=== PATIENT | male | born 1930 | race Caucasian/White ===

== ENCOUNTER → 2017-10-14 | Outpatient (CLI) | payer OTHER ==
[~2017-10-14] MED LIST: AMLODIPINE5 MG PO; DARVOCET N 1001 TAB PO; FLUTICASON0.05 MG/A2 NAS; HYDROCODONE BIT1 T11 PO; LISINOPRIL AND1 TA2 PO; POTASSIUM20 MEQ PO; TAMSULOSIN HYD0.4 MG PO
== END | disposition home or self-care (01) ==
LOC: MRI 09:56
DX: I67.82 Cerebral ischemia (principal); R41.3 Other amnesia

== ENCOUNTER 2018-12-20 13:09 | Emergency (ER) | payer MEDICARE ==
[~2018-12-20] VITALS: Wt 68.0 kg
--- NOTE | ~2018-12-20 | EKG ---
[place], [place] ELECTROCARDIOGRAM REPORT NAME: NEREYDA STEPHENSON UNIT #: [id number] ROOM: DOCTOR: EPIPHANY DRAFT REPORT BIRTHDATE: [birth year] [facility] Test Date: 2018-12-20 Test Time: 14:06:10 Pat Name: NEREYDA STEPHENSON Department: Room: Gender: M Checkout Operator: : 1930 Requested By: MARY ANN BATISTA DNP Order Number: [id number] Reading MD: Joanne Godoy Measurements Intervals [place] Rate: 67 P: 13 LA: 175 QRS: -30 QRSD: 108 T: 30 QT: 403 QTc: 426 Interpretive Statements Sinus rhythm Multiple ventricular premature complexes Left axis deviation Abnormal R-wave progression, early transition Baseline wander in lead(s) V3 No previous ECG available for comparison Electronically Signed On 12-21-2018 8:38:22 PDT by Joanne Godoy CM:EKGRPT:ELECTROCARDIOGRAM REPORT [id number] MARY ANN LONG DRAFT REPORT MARY ANN BATISTA DNP
[2018-12-20] MEDS ORDERED: ZYRTEC10 M3 PO (13:30)
[2018-12-20 14:23] LABS: BASO # 0.1 10*3/uL (0.0-0.1); BASO % 0.7 % (0.0-1.0); EOS % 0.6 % (1.0-4.0); HEMATOCRIT 40.5 % (42.0-52.0); HEMOGLOBIN 13.1 g/dl (14.0-18.0); LYMPH % 14.3 % (27.0-41.0); MEAN CELL VOLUME 92.9 fl (80.0-94.0); MEAN CORPUSCULAR HGB CONC 32.3 g/dl (33.0-37.0); MEAN PLATELET VOLUME 9.7 fl (9.6-12.3); MONO # 0.9 10*3/uL (0.1-1.0); MONO % 12.6 % (3.0-9.0); NEUT % 71.5 % (47.0-73.0); PLATELET COUNT AUTOMATED 191 10*3/uL (130-400); RED BLOOD COUNT 4.36 10*6/uL (4.50-5.90); RED CELL DISTRI WIDTH 14.3 % (0-14.5); WHITE BLOOD COUNT 6.9 10*3/uL (4.8-10.8)
[2018-12-20 14:42] LABS: ALBUMIN 3.5 gm/dl (3.1-4.5); ALKALINE PHOSPHATASE 57 U/L (45-117); BUN 28 mg/dl (7-24); CHLORIDE 108 mmol/L (98-107); CREATININE 1.03 mg/dL (0.70-1.30); LIPASE 663 U/L (73-393); POTASSIUM 3.9 mmol/L (3.5-5.1); SGOT/AST 13 IU/L (3-35); SGPT/ALT 18 U/L (12-78); SODIUM 142 mmol/L (136-145); TOTAL PROTEIN 6.8 gm/dL (6.4-8.2); TROPONIN I 0.015 ng/ml (<0.045)
[2018-12-20 14:46] LABS: ACT PARTIAL THROMBO TIME 26.5 SECONDS (20.0-32.1)
[2018-12-20 14:51] VITALS: BP 126/52
[2018-12-20 15:14] LABS: BILIRUBIN NEGATIVE (NEGATIVE); BLOOD NEGATIVE (NEGATIVE); CLARITY CLEAR (CLEAR); COLOR YELLOW (YELLOW); GLUCOSE NEGATIVE (NEGATIVE); KETONE NEGATIVE (NEGATIVE); LEUKO ESTERASE 1+ (NEGATIVE); NITRITE NEGATIVE (NEGATIVE); PH 5.5 (5.0-9.0); SPECIFIC GRAVITY >= 1.030 (1.005-1.030); UROBILINOGEN 0.2 E.U./dl (0.2-1.0)
[2018-12-20 15:21] LABS: BACTERIA 2+; MUCOUS 1+; WBC 31-40 wbc/hpf (0-5)
[2018-12-20] MEDS ORDERED: CEPHALEXIN500 M1 PO (16:18)
== END 2018-12-20 16:24 | disposition home or self-care (01) ==
LOC: ED 13:09
PROVIDERS: Nurse Practitioner Family
DX: S22.41XA Multiple fractures of ribs, right side, initial encounter for closed fracture (principal); S92.351A Displaced fracture of fifth metatarsal bone, right foot, initial encounter for closed fracture; S51.011A Laceration without foreign body of right elbow, initial encounter; N39.0 Urinary tract infection, site not specified; M25.511 Pain in right shoulder; I10 Essential (primary) hypertension; F03.90 Unspecified dementia, unspecified severity, without behavioral disturbance, psychotic disturbance, mood disturbance, and anxiety; Z88.6 Allergy status to analgesic agent; Z88.4 Allergy status to anesthetic agent; Z88.1 Allergy status to other antibiotic agents; Z79.899 Other long term (current) drug therapy; Z90.49 Acquired absence of other specified parts of digestive tract; W06.XXXA Fall from bed, initial encounter; Y93.89 Activity, other specified; Y92.098 Other place in other non-institutional residence as the place of occurrence of the external cause; Y99.8 Other external cause status

== ENCOUNTER 2019-06-18 22:15 | Inpatient (IN) | payer MEDICARE ==
[~2019-06-18] VITALS: Ht 165.1 cm; Wt 73.7 kg
[~2019-06-18 22:15] MED LIST changes: +CEPHALEXIN500 M1 PO; +ZYRTEC10 M3 PO
[2019-06-18 22:21] VITALS: BP 159/54
[2019-06-19] VITALS (9 sets, daily range): BP systolic 117–192; BP diastolic 55–93
[2019-06-19 00:03] LABS: BILIRUBIN NEGATIVE (NEGATIVE); BLOOD TRACE-INTACT (NEGATIVE); CLARITY CLEAR (CLEAR); COLOR YELLOW (YELLOW); GLUCOSE NEGATIVE (NEGATIVE); KETONE NEGATIVE (NEGATIVE); LEUKO ESTERASE TRACE (NEGATIVE); NITRITE NEGATIVE (NEGATIVE); PH 5.5 (5.0-9.0); SPECIFIC GRAVITY >= 1.030 (1.005-1.030); UROBILINOGEN 0.2 E.U./dl (0.2-1.0)
[2019-06-19 00:21] LABS: BACTERIA 1+; CALCIUM OXALATE CRYSTALS 3+; WBC 16-20 wbc/hpf (0-5)
[2019-06-19 01:36] LABS: BASO % 0.2 % (0.0-1.0); EOS % 0.1 % (1.0-4.0); HEMATOCRIT 35.2 % (42.0-52.0); HEMOGLOBIN 11.7 g/dl (14.0-18.0); LYMPH # 0.8 10*3/uL (1.3-4.4); LYMPH % 4.9 % (27.0-41.0); MEAN CELL VOLUME 91.9 fl (80.0-94.0); MEAN CORPUSCULAR HGB 30.5 pg (27.0-31.0); MEAN CORPUSCULAR HGB CONC 33.2 g/dl (33.0-37.0); MEAN PLATELET VOLUME 9.9 fl (9.6-12.3); MONO # 1.4 10*3/uL (0.1-1.0); MONO % 8.8 % (3.0-9.0); NEUT # 13.1 10*3/uL (2.3-7.9); NEUT % 85.6 % (47.0-73.0); PLATELET COUNT AUTOMATED 194 10*3/uL (130-400); RED BLOOD COUNT 3.83 10*6/uL (4.50-5.90); RED CELL DISTRI WIDTH 13.7 % (0-14.5); WHITE BLOOD COUNT 15.3 10*3/uL (4.8-10.8)
[2019-06-19 01:54] LABS: ALBUMIN 3.7 gm/dl (3.1-4.5); ALKALINE PHOSPHATASE 57 U/L (45-117); BUN 24 mg/dl (7-24); CHLORIDE 106 mmol/L (98-107); CREATININE 0.93 mg/dL (0.70-1.30); POTASSIUM 3.9 mmol/L (3.5-5.1); SGOT/AST 20 IU/L (3-35); SGPT/ALT 21 U/L (12-78); SODIUM 140 mmol/L (136-145); TOTAL PROTEIN 6.5 gm/dL (6.4-8.2)
--- NOTE | 2019-06-19 03:17 | NUR ---
NURSE TO NURSE REPORT GIVEN TO THIS RN
--- NOTE | 2019-06-19 05:47 | NUR ---
PATIENT IN BED AWAKE AND ALERT BUT PLEASANTLY CONFUSED. PATIENT RESP EASY AND NONLABORED. VOICES NO COMPLIANTS AT THIS TIME. RN WILL CONT TO MONITOR.
[2019-06-19 06:01] LABS: ALBUMIN 3.5 gm/dl (3.1-4.5); ALKALINE PHOSPHATASE 55 U/L (45-117); BUN 23 mg/dl (7-24); CHLORIDE 106 mmol/L (98-107); CHOLESTEROL 131 mg/dL (<200); CREATININE 0.92 mg/dL (0.70-1.30); HDL CHOLESTEROL 68 mg/dl (40-60); LDL CHOLESTEROL 53 mg/dL (9-159); PHOSPHOROUS 2.8 mg/dL (2.5-4.9); SGOT/AST 21 IU/L (3-35); SGPT/ALT 20 U/L (12-78); SODIUM 139 mmol/L (136-145); TOTAL PROTEIN 6.4 gm/dL (6.4-8.2); TRIGLYCERIDES 49 mg/dl (<150); VLDL CHOLESTEROL 10 mg/dL (6-40)
[2019-06-19 06:02] LABS: FREE T4 1.09 ng/dl (0.76-1.46)
[2019-06-19 06:05] LABS: BASO % 0.1 % (0.0-1.0); EOS % 0.1 % (1.0-4.0); HEMATOCRIT 34.9 % (42.0-52.0); HEMOGLOBIN 11.4 g/dl (14.0-18.0); LYMPH # 1.1 10*3/uL (1.3-4.4); LYMPH % 8.5 % (27.0-41.0); MEAN CELL VOLUME 91.1 fl (80.0-94.0); MEAN CORPUSCULAR HGB 29.8 pg (27.0-31.0); MEAN CORPUSCULAR HGB CONC 32.7 g/dl (33.0-37.0); MONO # 1.2 10*3/uL (0.1-1.0); NEUT % 81.9 % (47.0-73.0); PLATELET COUNT AUTOMATED 199 10*3/uL (130-400); RED BLOOD COUNT 3.83 10*6/uL (4.50-5.90); RED CELL DISTRI WIDTH 13.7 % (0-14.5); WHITE BLOOD COUNT 13.4 10*3/uL (4.8-10.8)
[2019-06-19] MEDS ORDERED: CITALOPRAM20 MG PO (07:48)
--- NOTE | 2019-06-19 09:03 | NUR ---
PT INCONTINENT OF LARGE AMT URINE, BED LINENS CHANGED AND PT PLACED IN GOWN FOR COMFORT.
--- NOTE | 2019-06-19 09:17 | NUR ---
DR. ARCHER NOTIFIED OF TROPONIN I RESULT.
--- NOTE | 2019-06-19 09:35 | NUR ---
Time: 934 A 88 year old MALE admitted to 5E under services of RULA VELAZQUEZ DO, Pt. arrived via stretcher from ER. Chief complaint: FELL AT HOME, INJURING LEFT ELBOW AND SHOULDER, PAIN TO THIS AREA WITH ANY MOVEMENT. MALCOLM QUINTANILLA
[2019-06-19 10:16] LABS: VITAMIN D, 25-HYDROXY 22.3 ng/mL (30-100)
--- NOTE | 2019-06-19 10:22 | NUR ---
PER DR. PHOENIX, SHE IS UNABLE TO TAKE ANY MORE CONSULTS FOR FRACTURES, AND HOSPITALISTS SHOULD BE NOTIFIED OF THIS. DR. ARCHER NOTIFIED.
--- NOTE | 2019-06-19 10:58 | NUR ---
MEDICATED WITH PRN PO TYLENOL FOR LEFT ARM PAIN.
--- NOTE | 2019-06-19 13:01 | NUR ---
PRN PO TYLENOL NOT EFFECTIVE FOR PAIN, PHONING FOR ADDITIONAL ORDERS.
--- NOTE | 2019-06-19 13:25 | NUR ---
MEDICATED WITH PRN PO NORCO FOR LEFT ARM PAIN.
--- NOTE | 2019-06-19 13:48 | NUR ---
Human Resource Statistician in to talk to patient. Patient states lives at home with his . There are 1.5 steps in the home. Physician: Dr. Kang Corey [facility]: [facility] Home health services: none Patient's level of ADLs: MINIMAL ASSIST Patient has working utilities: yes DME: cane Follow-up physician's appointment after d/c: will be made by the hospitalist nurse director upon discharge Does patient want to access PORTAL?: no Discharge plan discussed with patient and his who is at the bedside. He lives at home with his . He is independent in his ADLs and occasionally uses a cane for ambulation. Discussed short term SNF and patient/ are agreeable. When provided with a list of facilities they chose [facility] and 2. [facility]. weigh and charge worker notified. NISHI PHILLIPS
--- NOTE | 2019-06-19 14:15 | NUR ---
PRN PO NORCO EFFECTIVE, PER PATIENT.
--- NOTE | 2019-06-19 14:41 | NUR ---
FERMENTATION SCIENTIST notified of patient wanting to be referred to or [facility]. Per Mitch there are no beds. FERMENTATION SCIENTIST faxed referral to [facility]. Will need PT/OT Evals. Awaiting acceptance to [facility]. IF accepted patient can go on 06/22/19.- LADONNA Covington
--- NOTE | 2019-06-19 15:55 | NUR ---
Nursing screen received as well as occupational therapy orders. Will follow up with patient. Thank you. Sun Hahn, OTR/L
--- NOTE | 2019-06-19 17:42 | NUR ---
ADMINISTERED NORVASC, CELEXA AND FLOMAX ORDERED, MEDS NOT SCANNING DUE TO POOR INTERNET CONNECTION.
--- NOTE | 2019-06-19 19:03 | NUR ---
MEDICATED WITH PRN PO NORCO FOR LEFT SHOULDER/ARM PAIN.
--- NOTE | 2019-06-19 19:38 | NUR ---
ZOFRAN GIVEN PER DRS ORDERS AT THIS TIME, PATIENT HAS JUST VOMITED AFTER EATING DINNER. RN WILL MONITOR FOR EFFECTIVENES
--- NOTE | 2019-06-19 19:50 | NUR ---
MEDICATED WITH PRN PO NORCO FOR LEFT ARM/SHOULDER PAIN.
--- NOTE | 2019-06-19 20:45 | NUR ---
RN IN WITH AIDE TO CHANGE PATIENTS BRIEF. PATIENT WAS INCONTINENT FOR LARGE AMOUNT OF URINE. PATIENT TOLERATED WELL. SLING WAS REPOSITIONED ON LEFT ARM
[2019-06-20] VITALS: BP 133/82
[2019-06-20 06:56] LABS: HEMATOCRIT 33.3 % (42.0-52.0); HEMOGLOBIN 10.9 g/dl (14.0-18.0); MEAN CELL VOLUME 91.2 fl (80.0-94.0); MEAN CORPUSCULAR HGB 29.9 pg (27.0-31.0); MEAN CORPUSCULAR HGB CONC 32.7 g/dl (33.0-37.0); MEAN PLATELET VOLUME 10.2 fl (9.6-12.3); PLATELET COUNT AUTOMATED 164 10*3/uL (130-400); RED BLOOD COUNT 3.65 10*6/uL (4.50-5.90); WHITE BLOOD COUNT 12.7 10*3/uL (4.8-10.8)
[2019-06-20 07:10] LABS: BUN 21 mg/dl (7-24); CHLORIDE 106 mmol/L (98-107); CREATININE 0.78 mg/dL (0.70-1.30); POTASSIUM 3.6 mmol/L (3.5-5.1); SODIUM 139 mmol/L (136-145)
[2019-06-20 07:27] LABS: TOTAL CELLS COUNTED 100 #CELLS
[2019-06-20 07:28] LABS: PLATELET SUFFICIENCY NORMAL (NORMAL)
[2019-06-20 08:00] VITALS: BP 131/86
--- NOTE | 2019-06-20 08:13 | NUR ---
PHYSICAL THERAPY Screen and PT eval received will follow thank you Christine Zendejas PT
--- NOTE | 2019-06-20 08:30 | NUR ---
MEDICATED WITH PRN PO NORCO FOR RIGHT SHOULDER PAIN.
--- NOTE | 2019-06-20 08:56 | NUR ---
NEREYDA STEPHENSON [id number] Please refer to the physician's history and physical for past medical history, comorbid conditions, and allergies. Diagnosis: UTI, PROXIMAL HUMERUS FX Dex Score: 18,LOW OR NO RISK WOUND DESCRIPTIONS: Patient has sling intact to left arm at time of assessment. Ecchymotic areas noted to left arm at time of assessment extending toward patient's neck. Patient stated he fell and has an open area underneath the sling. Unable to view at time of assessment due to sling intact. Ortho, PT/OT is consulted and pending at this time. Surface the patient is resting on: Isoflex SKIN PREVENTION RECOMMENDATION: 1. Pressure redistribution support surface as appropriate 2. Elevate heels 3. Remove boots/TEDS every shift and reapply 4. Head of bed 30 degrees as tolerated 5. Assess nutrition and hydration 6. Manage moisture 7. Avoid the use of containment devices while in bed 8. Use absorptive products on surfaces limit layers of linens on bed 9. Turn and reposition every 1-2 hours in bed and every 1 hour in chair as tolerated 10. Weight shifts every 15 minutes while up in chair 11. Offloading with pillows or device to keep heels elevated off bed 12. Monitor skin at least every shift 13. Inspect under medical devices twice a day
--- NOTE | 2019-06-20 09:30 | NUR ---
PRN PO NORCO EFFECTIVE FOR LEFT ARM PAIN, PATIENT RESTING QUIETLY.
--- NOTE | 2019-06-20 09:57 | NUR ---
MEDICATED WITH PRN PO TYLENOL FOR TEMP. 100.0 ORALLY, PATIENT REMAINS CONFUSED, IS LETHARGIC AND SKIN HOT/DIAPHORETIC TO TOUCH.
--- NOTE | 2019-06-20 10:00 | NUR ---
Notified hospitalist nurse director of therapy needing direction.
[2019-06-20 12:00] VITALS: BP 131/58
--- NOTE | 2019-06-20 13:45 | NUR ---
Occupational therapy orders received and chart reviewed. Patient was eating his lunch upon arrival. Patient's was assisting patient during feeding. Will follow up with patient when available. Thank you. Sun Hahn, OTR/L
--- NOTE | 2019-06-20 13:45 | NUR ---
PHYSICAL THERAPY Attempted to see pt for evaluation eating lunch, assisting will follow later in the PM Christine Zendejas PT
--- NOTE | 2019-06-20 13:51 | NUR ---
PT Eval is needed in order for [facility] to review for acceptance. -LADONNA Covington
--- NOTE | 2019-06-20 14:30 | NUR ---
PHYSICAL THERAPY Tom completed high level of complexity 43488 recomend SNF at discharge PT to work on transfers, randy w AD NWB of GENA mcdonald Sling, balance/safety and strengthening, full report to follow Christine Zendejas PT
--- NOTE | 2019-06-20 14:39 | NUR ---
MEDICATED WITH PRN PO NORCO PRIOR TO WORKING WITH PT. VISITING AT BEDSIDE.
--- NOTE | 2019-06-20 14:40 | NUR ---
Occupational therapy orders received and OT evaluation completed in full on floor five. Patient precautions include fall risk, bed alarm, L UE NWB, L proximal humerus fx, L UE sling, decreased command follow, retropulsive. Per OT eval, OT recommends a SNF. Patient complexity is high, 29029. Thank you. Sun Hahn, OTR/L
--- NOTE | 2019-06-20 15:26 | NUR ---
PRN PO NORCO EFFECTIVE, PER PATIENT.
--- NOTE | 2019-06-20 15:47 | NUR ---
Clinical Appeals Reviewer in to see patient. Discussed discharge planning with who is at the patient's bedside and patient. Explained patient will need to be accepted to [facility] and need a 3 night hospital stay for Medicare. They verbalized an understanding. When medically stable and accepted along with Medicare 3 night stay he will be discharged to [facility].
[2019-06-20 16:00] VITALS: BP 131/57
--- NOTE | 2019-06-20 16:44 | NUR ---
PER , PATIENT SEEMS MORE CONFUSED WHEN TAKING NORCO AND ASKED THAT IF POSSIBLE PATIENT TO BE GIVEN TYLENOL DURING THE DAYTIME.
[2019-06-20 20:00] VITALS: BP 146/97
[2019-06-21 04:00] VITALS: BP 144/78
--- NOTE | 2019-06-21 04:40 | NUR ---
TYLENOL GIVEN PER PRN ORDER FOR C/O SHOULDER DISCOMFORT. SEE EMAR. REINFORCED USE OF CALL LIGHT.
[2019-06-21 06:14] LABS: BASO % 0.2 % (0.0-1.0); EOS % 0.2 % (1.0-4.0); HEMATOCRIT 31.1 % (42.0-52.0); HEMOGLOBIN 10.2 g/dl (14.0-18.0); LYMPH # 0.9 10*3/uL (1.3-4.4); LYMPH % 8.6 % (27.0-41.0); MEAN CELL VOLUME 92.6 fl (80.0-94.0); MEAN CORPUSCULAR HGB 30.4 pg (27.0-31.0); MEAN CORPUSCULAR HGB CONC 32.8 g/dl (33.0-37.0); MONO # 1.4 10*3/uL (0.1-1.0); MONO % 13.2 % (3.0-9.0); NEUT # 8.4 10*3/uL (2.3-7.9); NEUT % 77.5 % (47.0-73.0); PLATELET COUNT AUTOMATED 147 10*3/uL (130-400); RED BLOOD COUNT 3.36 10*6/uL (4.50-5.90); RED CELL DISTRI WIDTH 13.9 % (0-14.5); WHITE BLOOD COUNT 10.8 10*3/uL (4.8-10.8)
[2019-06-21 06:20] LABS: BUN 22 mg/dl (7-24); CHLORIDE 105 mmol/L (98-107); CREATININE 0.78 mg/dL (0.70-1.30); POTASSIUM 3.7 mmol/L (3.5-5.1); SODIUM 139 mmol/L (136-145)
--- NOTE | 2019-06-21 07:30 | NUR ---
Pending acceptance to [facility]. LIME MIXER faxed PT Eval and updates to [facility]. -LADONNA Covington
[2019-06-21 08:00] VITALS: BP 134/69
--- NOTE | 2019-06-21 10:05 | NUR ---
PHYSICAL THERAPY TREATMENT TIME: 09:45 AM - 10:05 AM 20 MINUTES Patient presented to therapy in supine with head of bed elevated, bed alarm on and visiting in the room. Patient reports pain level in the L UE of 9/10 with any movement. Patient gives informed consent for treatment. Connor suggs identified by name and on wristbband. Patient transferred supine to sitting at EOB with MAX A X 2. Patient sat on EOB with MAX A X 1 TO PREVENT RETRO LEAN in sitting and also patient leaning to the R side. Patient sit to stand from EOB with MAX A X 2. Patient stood at EOB x 2 with MOD A X 2 with use of Arsalan-walker on the R side for < 30 seconds both times. Patient is MAX A X 2 sit to stand from EOB and transferred back to supine in bed with MAX A X 2. Patient WAS LEFT IN SUPINE IN BED WITH HEAD OF BED ELEVATED, call light within reach and bed alarm activated. Patient's visitng in the room. Patient was 1:1 with this ONLINE ACTIVIST for 20 minutes total. HAIDER ELMORE ONLINE ACTIVIST
--- NOTE | 2019-06-21 10:05 | NUR ---
OT NOTE Pt was seen this A.M. 1:1 for 19 minute OT session. Upon arrival pt was supine in bed with at bedside. Pt identified by name and and had complaints of L shoulder pain which he did not rate on 0-10 pain scale. Pt presented to therapy with L arm sling in place and increased confusion. Pt transferred supine to sit EOB with maxA x 2. While sitting EOB challenged pt's static sitting balance needed for increased I and enhanced safety. Pt was able to maintain p-/P+ sitting balance throughout requiring mod-maxA to correct retrograde posture. Pt then completed multiple sit to stand transfers from bed level with modA x 2 and use of carrington walker in RUE. Challenged pt's static standing tolerance needed for increased I in self care tasks and functional transfers, pt was able to tolerate aprox 20 seconds at a time before sitting due to fatigue. Pt then transferred back into bed sit to supine with maxA x 2. There he was left with call light in hand, tray table in place, and bed alarm activated for safety. Continue with POC as able. JONO Swanson/Jessica
--- NOTE | 2019-06-21 10:30 | NUR ---
[employer] Armoured Personnel Carrier [id number] in to see patient. Discussed discharge planning with patient and his who is at the bedside. Explained waiting on acceptance to [facility] and he will need one more hospital day as Medicare requires a 3 night hospital stay. She verbalized an understanding. Awaiting acceptance to [facility].
[2019-06-21 12:00] VITALS: BP 139/63
--- NOTE | 2019-06-21 12:08 | NUR ---
[facility] has accepted the patient. Patient is able to go to [facility] tomorrow 06/22/2019. LADONNA Covington
--- NOTE | 2019-06-21 12:26 | NUR ---
Nutritional Support Services Note: Pt is reported to have a left elbow skin tear. Intakes are good, consuming 100% of meals. Staff to continue to encourage adequate nutrition. Ysabel Wynn, Kervin student
--- NOTE | 2019-06-21 13:38 | NUR ---
Pt is having a lot pain with movement with cleansing up and repositioning. Offered norco to pt for pain. Pt already had tylenol this am. I gave pt pill and offered straw to drink water to swallow pill. Pt began to chew pill then took sip of water swished around mouth and then spit it out all over bed.
[2019-06-21 16:00] VITALS: BP 156/70
--- NOTE | 2019-06-21 19:30 | NUR ---
PATIENT MEDICATED WITH TYLENOL PER PRN ORDER FOR C/O SHOULDER PAIN.ASB PATIENT MOANING WHEN REPOSITIONED. SEE EMAR. REINFORCED USE OF CALL LIGHT.
[2019-06-21 20:00] VITALS: BP 153/83
--- NOTE | 2019-06-21 22:00 | NUR ---
PATIENT APPEARS TO BE SLEEPING. MEDICATION EFFECTIVE
[2019-06-22] VITALS: BP 145/68
--- NOTE | 2019-06-22 01:20 | NUR ---
PATIENT MEDICATED WITH TYLENOL PER PRN ORDER FOR C/O SHOULDER PAIN. SEE EMAR. REINFORCED USE OF CALL LIGHT.
[2019-06-22 08:00] VITALS: BP 157/73
--- NOTE | 2019-06-22 08:07 | NUR ---
Patient can go to [facility] today if medically stable. HAND EDGER faxed updates to [facility]. -LADONNA Covington
[2019-06-22] MEDS ORDERED: TYLENOL325 M2 PO (08:13)
--- NOTE | 2019-06-22 08:44 | NUR ---
Spoke to , Isidra, regarding discharge and transportation today to [facility]. She states she is not able to transport as she has not been eating the last 2 days and has diarrhea. She is also afraid if she was able to get him in their car it would be a fight to go home and not to [facility]. She would like to see if [place] where her nephew, Joe, works can transport. salvage worker following.
--- NOTE | 2019-06-22 09:19 | NUR ---
COMPLIANCE CONSULTANT was notified of discharge. COMPLIANCE CONSULTANT spoke with SIDRA Perez. COMPLIANCE CONSULTANT spoke with Tino James and arranged a 12pm transport to [facility]. COMPLIANCE CONSULTANT notified [facility] of transport. COMPLIANCE CONSULTANT spoke with patients and explained this to her. She stated if anything was to change to contact her on cell at [phone]. COMPLIANCE CONSULTANT faxed discharge orders to [facility] and demographics to [facility]. -LADONNA Covington
--- NOTE | 2019-06-22 12:32 | NUR ---
PT DISCHARGED TO [facility]. REPORT CALLED. [place] REMOVED FROM RIGHT ARM. AMBULANCE TRANSFER. DISCHARGE PACKET GIVEN TO EMT.
--- NOTE | 2019-06-22 14:59 | NUR ---
PHYSICAL THERAPY CO-SIGN I approve of the Physical Therapy notes written above. Christine Zendejas PT
--- NOTE | 2019-06-22 15:00 | NUR ---
OCCUPATIONAL THERAPY CO-SIGN I approve of the Occupational Therapy notes written above. Sun Hahn, OTR/L
== END 2019-06-22 12:32 | disposition other institution (70) | DRG 563 ==
LOC: ED 22:15 → EDHOLD 06-19 01:11 → 5E 06-19 01:11
PROVIDERS: Family Medicine; Internal Medicine; Physician Assistant; ADMIT Internal Medicine
DX: S42.202A Unspecified fracture of upper end of left humerus, initial encounter for closed fracture (principal); N30.00 Acute cystitis without hematuria; W19.XXXA Unspecified fall, initial encounter; D64.9 Anemia, unspecified; F03.90 Unspecified dementia, unspecified severity, without behavioral disturbance, psychotic disturbance, mood disturbance, and anxiety; I10 Essential (primary) hypertension; N40.0 Benign prostatic hyperplasia without lower urinary tract symptoms; R73.9 Hyperglycemia, unspecified; Z96.651 Presence of right artificial knee joint; Y93.89 Activity, other specified; Y92.098 Other place in other non-institutional residence as the place of occurrence of the external cause; Y99.8 Other external cause status; Z88.1 Allergy status to other antibiotic agents; Z88.5 Allergy status to narcotic agent; Z90.49 Acquired absence of other specified parts of digestive tract; Z98.42 Cataract extraction status, left eye; Z98.41 Cataract extraction status, right eye; Z82.3 Family history of stroke; Z83.6 Family history of other diseases of the respiratory system; Z87.891 Personal history of nicotine dependence; Z79.899 Other long term (current) drug therapy

== ENCOUNTER 2019-07-11 18:29 | Emergency (ER) | payer MEDICARE ==
[~2019-07-11] VITALS: Ht 167.6 cm; Wt 72.1 kg
[~2019-07-11 18:29] MED LIST changes: +CITALOPRAM20 MG PO; +TYLENOL325 M2 PO
[2019-07-11 18:34] VITALS: BP 136/59
[2019-07-11 19:07] LABS: BASO % 0.4 % (0.0-1.0); EOS % 0.4 % (1.0-4.0); HEMOGLOBIN 10.5 g/dl (14.0-18.0); LYMPH # 0.7 10*3/uL (1.3-4.4); LYMPH % 7.1 % (27.0-41.0); MEAN CELL VOLUME 91.2 fl (80.0-94.0); MEAN CORPUSCULAR HGB CONC 31.8 g/dl (33.0-37.0); MEAN PLATELET VOLUME 8.8 fl (9.6-12.3); NEUT # 7.8 10*3/uL (2.3-7.9); PLATELET COUNT AUTOMATED 317 10*3/uL (130-400); RED BLOOD COUNT 3.62 10*6/uL (4.50-5.90); RED CELL DISTRI WIDTH 13.2 % (0-14.5); WHITE BLOOD COUNT 9.7 10*3/uL (4.8-10.8)
[2019-07-11 19:18] LABS: ACT PARTIAL THROMBO TIME 32.2 SECONDS (20.0-32.1); INTERNATIONAL NORM RATIO 1.1 (2.0-3.5)
[2019-07-11 19:27] LABS: ALBUMIN 2.7 gm/dl (3.1-4.5); ALKALINE PHOSPHATASE 108 U/L (45-117); BUN 24 mg/dl (7-24); CHLORIDE 106 mmol/L (98-107); POTASSIUM 4.1 mmol/L (3.5-5.1); SGOT/AST 16 IU/L (3-35); SGPT/ALT 24 U/L (12-78); SODIUM 139 mmol/L (136-145); TOTAL PROTEIN 6.4 gm/dL (6.4-8.2)
[2019-07-11 19:28] LABS: TROPONIN I 0.033 ng/ml (<0.045)
== END 2019-07-11 22:05 | disposition other institution (70) ==
LOC: ED 18:29
PROVIDERS: Physician Assistant
DX: S00.03XA Contusion of scalp, initial encounter (principal); M25.562 Pain in left knee; M25.552 Pain in left hip; M79.661 Pain in right lower leg; M25.551 Pain in right hip; Z88.6 Allergy status to analgesic agent; Z88.1 Allergy status to other antibiotic agents; Z79.899 Other long term (current) drug therapy; Z90.49 Acquired absence of other specified parts of digestive tract; Z87.891 Personal history of nicotine dependence; W19.XXXA Unspecified fall, initial encounter; Y93.89 Activity, other specified; Y92.128 Other place in nursing home as the place of occurrence of the external cause; Y99.8 Other external cause status